=== PATIENT | female | born 1970 | race Caucasian/White ===

== ENCOUNTER 2020-06-16 05:10 | Inpatient (IN) ==
[2020-06-16] MEDS ORDERED: FUROSEMIDE 40 MG/4 ML VIAL IV STA (06:26)
[2020-06-16 06:46] LABS: ABG Base Excess 8.6 MMOL/L (-2.5-2.5); ABG HCO3 32.3 MMOL/L (20-26); ABG Oxygen Saturation 97.7 % (95-100); ABG PCO2 59.3 MM HG (35-48); ABG PH 7.386 (7.35-7.45)
[2020-06-16 07:28] LABS: Albumin 2.9 G/DL (3.4-5.0); Bilirubin,Total 0.9 MG/DL (0.2-1.0); Calcium 8.7 MG/DL (8.5-10.1); Total Protein 6.9 G/DL (6.4-8.3)
[2020-06-16 07:45] LABS: Bilirubin,Urine Negative (Negative); Blood, Urine Moderate mg/dL (Negative); Glucose,Urine (UA) Negative (Negative); Ketones,Urine Negative (Negative); Nitrite,Urine Negative (Negative); Protein,Urine 100 MG/DL; Urine Appearance Slightly Hazy (Clear); Urine Color Yellow (Yellow); Urine Specific Gravity 1.017 (1.001-1.035); Urine Urobilinogen < 2.0 EU/DL (0.2-1.0)
[2020-06-16 07:51] LABS: RBC,Urine TNTC /HPF (0-4); Squamous Epithelial Cell,Urine Moderate /HPF (0-10); WBC,Urine TNTC /HPF (0-6)
[2020-06-16 07:52] LABS: Amorphous Crystals,Urine Few /HPF (Few); Bacteria,Urine 3+ /HPF (Few)
[2020-06-16 08:06] LABS: Basophils # 0.1 10*3/uL (0.0-0.2); Basophils % 0.4 % (0.0-0.8); Eosinophils # 0.1 10*3/uL (0.0-0.87); Eosinophils % 0.7 % (0.00-10.9); Hematocrit 35.2 VOL% (35.7-47.0); Immature Granulocytes % 1.1 %; Immature Granulocytes Absolute 0.13 #; Lymphocytes # 1.2 10*3/uL (1.4-4.0); Lymphocytes % 9.6 % (21.3-54.2); Mean Corpuscular HGB Conc 29.3 GM/DL (32-36); Mean Platelet Volume 11.9 FL (9.6-12.0); Monocytes % 5.6 % (1.7-12.7); NRBC # 0.02 10*3/uL; Neutrophils % 82.6 % (38.7-73.9); Platelet Count 210 T/CUMM (130-400); Red Blood Count 4.19 MC/CUMM (3.8-5.5); Red Cell Distribution Width 17.6 % (9.3-17.3); White Blood Count 12.3 T/CUMM (4-12)
[2020-06-16 08:08] LABS: Hemoglobin 10.3 GM/DL (12.0-16.0)
[2020-06-16 08:23] LABS: Hypochromasia 1+; Microcytosis 1+; Platelet Estimate Adequate
[2020-06-16] MEDS ORDERED: DEXTROSE 50% 25 GM/50 ML VIAL IV PRN (10:45)
[2020-06-16] MEDS ORDERED: hydrALAZINE 20 MG/1 ML VIAL IV PRN (10:45)
[2020-06-16] MEDS ORDERED: GLUCAGON 1 MG VIAL IM PRN (10:45)
[2020-06-16] MEDS ORDERED: guaiFENesin/DM ER 600-30 MG TABLET PO PRN (10:45)
[2020-06-16] MEDS ORDERED: MAGNESIUM SULF RIDER 4 GM in PREMIX 1 EACH IV PRN (10:51)
[2020-06-16] MEDS ORDERED: MAGNESIUM SULF RIDER 2 GM in PREMIX 1 EACH IV PRN (10:51)
[2020-06-16] MEDS ORDERED: SODIUM CHLORIDE 0.9% 100 ML IV ONE (11:08)
[2020-06-16] MEDS: cefTRIAXone 1,000 MG in SYRINGE 1 EACH IV SCH (11:13)
[2020-06-16 11:17] LABS: Risk Ratio 2.04; Thyroid Stimulating Hormone 0.949 uIU/ml (0.358-3.74); VLDL CHOLESTEROL 15.2 MG/DL
[2020-06-16] MEDS: ALBUTEROL 2.5 MG/3 ML NEB RESP TX SCH ×2 (12:35→19:35)
[2020-06-16] MEDS ORDERED: hydrALAZINE 25 MG TABLET PO SCH (15:00)
[2020-06-16] MEDS ORDERED: GABAPENTIN 300 MG CAPSULE ONE (15:03)
[2020-06-16] MEDS: GABAPENTIN 300 MG CAPSULE PO SCH ×2 (15:21→21:01)
[2020-06-16] MEDS ORDERED: FUROSEMIDE 40 MG/4 ML VIAL IV SCH (16:00)
[2020-06-16] MEDS: FUROSEMIDE 40 MG/4 ML VIAL IV SCH (16:03)
[2020-06-16] MEDS ORDERED: ALPRAZolam 0.5 MG TABLET PO PRN (16:55)
[2020-06-16] MEDS ORDERED: AMITRIPTYLINE 50 MG TABLET PO SCH (18:00)
[2020-06-16] MEDS ORDERED: GABAPENTIN 300 MG CAPSULE PO SCH (21:00)
[2020-06-17] MEDS: ALBUTEROL 2.5 MG/3 ML NEB RESP TX SCH ×4 (00:09→19:14)
[2020-06-17 06:06] LABS: Calcium 8.9 MG/DL (8.5-10.1)
[2020-06-17 06:13] LABS: Potassium 3.7 MMOL/L (3.5-5.1)
[2020-06-17 06:22] LABS: Basophils # 0.1 10*3/uL (0.0-0.2); Basophils % 0.6 % (0.0-0.8); Eosinophils # 0.2 10*3/uL (0.0-0.87); Eosinophils % 2.4 % (0.00-10.9); Hematocrit 37.6 VOL% (35.7-47.0); Immature Granulocytes % 0.6 %; Immature Granulocytes Absolute 0.06 #; Lymphocytes # 1.7 10*3/uL (1.4-4.0); Lymphocytes % 16.9 % (21.3-54.2); Mean Corpuscular HGB Conc 29.5 GM/DL (32-36); Mean Corpuscular Volume 82.8 FL (87-102); Mean Platelet Volume 11.3 FL (9.6-12.0); Neutrophils % 72.5 % (38.7-73.9); Platelet Count 207 T/CUMM (130-400); Red Blood Count 4.54 MC/CUMM (3.8-5.5); Red Cell Distribution Width 17.6 % (9.3-17.3); White Blood Count 9.9 T/CUMM (4-12)
[2020-06-17 06:24] LABS: Hemoglobin 11.1 GM/DL (12.0-16.0)
[2020-06-17 07:57] LABS: ABG Base Excess 15.4 MMOL/L (-2.5-2.5); ABG HCO3 38.8 MMOL/L (20-26); ABG Oxygen Saturation 70.4 % (95-100); ABG PH 7.383 (7.35-7.45); ABG PO2 41.2 MM HG (80-95); ABG TCO2 40.1 MMOL/L (23-27)
[2020-06-17 07:58] LABS: ABG PCO2 74.1 MM HG (35-48)
[2020-06-17] MEDS ORDERED: NAPROXEN 500 MG TABLET PO ONE (09:23)
[2020-06-17] MEDS: FLUoxetine 20 MG CAPSULE PO SCH (10:12)
[2020-06-17] MEDS: rOPINIRole 0.25 MG TABLET PO SCH (10:13)
[2020-06-17] MEDS: GABAPENTIN 300 MG CAPSULE PO SCH ×3 (10:16→21:54)
[2020-06-17] MEDS: PANTOPRAZOLE 40 MG TABLET PO SCH (10:17)
[2020-06-17] MEDS: LOSARTAN/HCTZ 50-12.5 MG TABLET PO SCH (10:17)
[2020-06-17] MEDS: FUROSEMIDE 40 MG/4 ML VIAL IV SCH ×2 (10:17→17:27)
[2020-06-17] MEDS: ASPIRIN CHEW 81 MG TABLET PO SCH (10:17)
[2020-06-17] MEDS: cefTRIAXone 1,000 MG in SYRINGE 1 EACH IV SCH (12:01)
[2020-06-17] MEDS: ONDANSETRON 4 MG/2 ML VIAL IV PRN (12:23)
[2020-06-17 14:39] LABS: ABG Base Excess 12.4 MMOL/L (-2.5-2.5); ABG HCO3 36.1 MMOL/L (20-26); ABG Oxygen Saturation 93.1 % (95-100); ABG PH 7.305 (7.35-7.45); ABG TCO2 38.7 MMOL/L (23-27)
[2020-06-17 14:43] LABS: ABG PCO2 85.8 MM HG (35-48)
[2020-06-17] MEDS: methylPREDNISolone SOD SUC 40 MG/1 ML VIAL IV SCH (15:44)
[2020-06-17] MEDS ORDERED: AMITRIPTYLINE 25 MG TABLET PO SCH (17:00)
[2020-06-17 18:12] LABS: ABG Base Excess 12.7 MMOL/L (-2.5-2.5); ABG HCO3 36.4 MMOL/L (20-26); ABG PH 7.293 (7.35-7.45); ABG PO2 68.2 MM HG (80-95); ABG TCO2 39.6 MMOL/L (23-27)
[2020-06-17 18:15] LABS: ABG PCO2 89.9 MM HG (35-48)
[2020-06-17 21:07] LABS: Bilirubin,Urine Negative (Negative); Blood, Urine Moderate mg/dL (Negative); Glucose,Urine (UA) Negative (Negative); Ketones,Urine Negative (Negative); Mucus,Urine Occasional /LPF (Occasional); Nitrite,Urine Negative (Negative); Protein,Urine 100 MG/DL; RBC,Urine 46 /HPF (0-4); Squamous Epithelial Cell,Urine Occasional /HPF (0-10); Urine Appearance CLOUDY (Clear); Urine Color Amber (Yellow); Urine Urobilinogen < 2.0 EU/DL (0.2-1.0); WBC,Urine 235 /HPF (0-6)
[2020-06-17 21:08] LABS: ABG Base Excess 13.2 MMOL/L (-2.5-2.5); ABG HCO3 44.7 MMOL/L (20-26); ABG Oxygen Saturation 97.4 % (95-100); ABG PH 7.226 (7.35-7.45); ABG PO2 118.4 MM HG (80-95); ABG TCO2 48.1 MMOL/L (23-27)
[2020-06-17 21:11] LABS: ABG PCO2 110.3 MM HG (35-48)
[2020-06-18] MEDS: methylPREDNISolone SOD SUC 40 MG/1 ML VIAL IV SCH ×4 (00:28→23:50)
[2020-06-18 00:56] LABS: ABG Base Excess 11.6 MMOL/L (-2.5-2.5); ABG HCO3 35.4 MMOL/L (20-26); ABG Oxygen Saturation 98.6 % (95-100); ABG PH 7.213 (7.35-7.45); ABG TCO2 40.9 MMOL/L (23-27)
[2020-06-18] MEDS: ALBUTEROL 2.5 MG/3 ML NEB RESP TX SCH ×5 (00:58→20:02)
[2020-06-18 04:13] LABS: ABG Base Excess 12.4 MMOL/L (-2.5-2.5); ABG HCO3 42.9 MMOL/L (20-26); ABG Oxygen Saturation 95.8 % (95-100); ABG PH 7.259 (7.35-7.45); ABG PO2 89.4 MM HG (80-95); ABG TCO2 45.9 MMOL/L (23-27); Allen Test Positive; Pt O2 Delivery Device BIPAP
[2020-06-18 04:39] LABS: Calcium 8.7 MG/DL (8.5-10.1); Potassium 4.6 MMOL/L (3.5-5.1)
[2020-06-18 04:58] LABS: Basophils % 0.2 % (0.0-0.8); Hematocrit 41.2 VOL% (35.7-47.0); Hemoglobin 11.3 GM/DL (12.0-16.0); Immature Granulocytes % 0.5 %; Immature Granulocytes Absolute 0.06 #; Lymphocytes # 0.6 10*3/uL (1.4-4.0); Lymphocytes % 4.9 % (21.3-54.2); Mean Corpuscular HGB Conc 27.4 GM/DL (32-36); Neutrophils % 92.4 % (38.7-73.9); Platelet Count 241 T/CUMM (130-400); Red Blood Count 4.68 MC/CUMM (3.8-5.5); Red Cell Distribution Width 17.4 % (9.3-17.3); White Blood Count 11.4 T/CUMM (4-12)
[2020-06-18 05:08] LABS: Band Neutrophils 1 % (0-10); Hypochromasia 2+; Lymphocytes 6 % (20-55); Microcytosis 1+; Ovalocytes Slight; Segmented Neutrophils 89 % (50-85); Total Cells Counted 100
[2020-06-18 05:09] LABS: Anisocytosis 1+; Stomatocytes Slight
[2020-06-18] MEDS: ASPIRIN CHEW 81 MG TABLET PO SCH (09:04)
[2020-06-18] MEDS: LOSARTAN/HCTZ 50-12.5 MG TABLET PO SCH (09:04)
[2020-06-18] MEDS: THEOPHYLLINE ER (24 HR) 400 MG CAPSULE PO SCH (09:05)
[2020-06-18] MEDS: rOPINIRole 0.25 MG TABLET PO SCH (09:05)
[2020-06-18] MEDS: PANTOPRAZOLE 40 MG TABLET PO SCH (09:05)
[2020-06-18] MEDS: FLUoxetine 20 MG CAPSULE PO SCH (09:05)
[2020-06-18] MEDS: GABAPENTIN 300 MG CAPSULE PO SCH ×3 (09:05→20:30)
[2020-06-18] MEDS: FUROSEMIDE 40 MG/4 ML VIAL IV SCH ×2 (09:06→16:01)
[2020-06-18] MEDS: PHENAZOPYRIDINE 95 MG TABLET PO SCH ×2 (11:33→17:02)
[2020-06-18] MEDS: AMITRIPTYLINE 50 MG TABLET PO SCH (17:02)
[2020-06-19 04:02] LABS: Basophils % 0.2 % (0.0-0.8); Hematocrit 37.2 VOL% (35.7-47.0); Hemoglobin 10.6 GM/DL (12.0-16.0); Immature Granulocytes % 0.6 %; Immature Granulocytes Absolute 0.07 #; Lymphocytes # 1.1 10*3/uL (1.4-4.0); Lymphocytes % 8.9 % (21.3-54.2); Mean Corpuscular HGB Conc 28.5 GM/DL (32-36); Mean Corpuscular Volume 84.7 FL (87-102); Mean Platelet Volume 11.6 FL (9.6-12.0); Monocytes % 5.6 % (1.7-12.7); Neutrophils % 84.7 % (38.7-73.9); Platelet Count 275 T/CUMM (130-400); Red Blood Count 4.39 MC/CUMM (3.8-5.5); Red Cell Distribution Width 17.2 % (9.3-17.3); White Blood Count 11.9 T/CUMM (4-12)
[2020-06-19 04:12] LABS: Anisocytosis 1+; Hypochromasia 2+; Microcytosis 1+; Ovalocytes Slight; Platelet Estimate Normal
[2020-06-19 04:31] LABS: Osmolality,Calculated 282.2 MOS/KG (273-304); Potassium 3.7 MMOL/L (3.5-5.1)
[2020-06-19] MEDS: ALBUTEROL 2.5 MG/3 ML NEB RESP TX SCH ×3 (08:07→20:49)
[2020-06-19] MEDS: FLUoxetine 20 MG CAPSULE PO SCH (08:39)
[2020-06-19] MEDS: LOSARTAN/HCTZ 50-12.5 MG TABLET PO SCH (08:40)
[2020-06-19] MEDS: GABAPENTIN 300 MG CAPSULE PO SCH ×3 (08:40→20:35)
[2020-06-19] MEDS: THEOPHYLLINE ER (24 HR) 400 MG CAPSULE PO SCH (08:40)
[2020-06-19] MEDS: ASPIRIN CHEW 81 MG TABLET PO SCH (08:40)
[2020-06-19] MEDS: PHENAZOPYRIDINE 95 MG TABLET PO SCH ×2 (08:40→16:41)
[2020-06-19] MEDS: rOPINIRole 0.25 MG TABLET PO SCH (08:40)
[2020-06-19] MEDS: PANTOPRAZOLE 40 MG TABLET PO SCH (08:40)
[2020-06-19] MEDS: FUROSEMIDE 40 MG/4 ML VIAL IV SCH (08:41)
[2020-06-19] MEDS: methylPREDNISolone SOD SUC 40 MG/1 ML VIAL IV SCH (08:41)
[2020-06-19] MEDS ORDERED: FUROSEMIDE 40 MG/4 ML VIAL IV SCH (09:00)
[2020-06-19] MEDS ORDERED: cefTRIAXone 1,000 MG in SYRINGE 1 EACH IV ONE (09:00)
[2020-06-19 11:11] LABS: Allen Test Positive
[2020-06-19 11:14] LABS: ABG Base Excess 11.5 MMOL/L (-2.5-2.5); ABG HCO3 39.1 MMOL/L (20-26); ABG PCO2 63.6 MM HG (35-48); ABG PH 7.407 (7.35-7.45); ABG PO2 63.1 MM HG (80-95); ABG TCO2 41.1 MMOL/L (23-27)
[2020-06-19 11:16] LABS: ABG Oxygen Saturation 91.6 % (95-100)
[2020-06-19] MEDS: predniSONE 20 MG TABLET PO SCH (13:14)
[2020-06-19] MEDS: AMITRIPTYLINE 50 MG TABLET PO SCH (16:41)
[2020-06-19] MEDS: DOCUSATE SODIUM 100 MG CAPSULE PO SCH ×2 (17:36→20:35)
[2020-06-19] MEDS: POLYETHYLENE GLYCOL POWDER 17 GM PACK PO SCH (17:36)
[2020-06-19] MEDS: ONDANSETRON 4 MG/2 ML VIAL IV PRN (17:39)
[2020-06-20] MEDS: ALBUTEROL 2.5 MG/3 ML NEB RESP TX SCH ×2 (00:55→08:00)
[2020-06-20 09:08] LABS: Calcium 8.9 MG/DL (8.5-10.1); Potassium 3.6 MMOL/L (3.5-5.1)
[2020-06-20 09:21] LABS: Osmolality,Calculated 281.8 MOS/KG (273-304)
[2020-06-20] MEDS: THEOPHYLLINE ER (24 HR) 400 MG CAPSULE PO SCH (09:56)
[2020-06-20] MEDS: predniSONE 20 MG TABLET PO SCH (09:56)
[2020-06-20] MEDS: GABAPENTIN 300 MG CAPSULE PO SCH (09:57)
[2020-06-20] MEDS: PHENAZOPYRIDINE 95 MG TABLET PO SCH (09:57)
[2020-06-20] MEDS: LOSARTAN/HCTZ 50-12.5 MG TABLET PO SCH (09:58)
[2020-06-20] MEDS: ASPIRIN CHEW 81 MG TABLET PO SCH (09:58)
[2020-06-20] MEDS: PANTOPRAZOLE 40 MG TABLET PO SCH (09:58)
[2020-06-20] MEDS: FLUoxetine 20 MG CAPSULE PO SCH (09:58)
[2020-06-20] MEDS: DOCUSATE SODIUM 100 MG CAPSULE PO SCH (09:59)
[2020-06-20] MEDS: rOPINIRole 0.25 MG TABLET PO SCH (09:59)
[2020-06-20] MEDS: POLYETHYLENE GLYCOL POWDER 17 GM PACK PO SCH (09:59)
[2020-06-20 12:01] VITALS: BP 132/82
[2020-06-20] MEDS ORDERED: POLYETHYLENE GLYCOL POWDER 17 GM PACK PO SCH (16:50)
== END 2020-06-20 12:25 | disposition home or self-care (01) | DRG 291 ==
LOC: N.ED 05:10 → N.EDINP 10:45 → SUATTDRO 10:45 → N.EDINP 19:58 → N.TELEN 20:29 → N.ICU 06-17 20:18 → N.3E 06-19 15:49
PROVIDERS: ADMIT Internal Medicine; ATTEND Internal Medicine

== ENCOUNTER 2020-07-21 20:42 | Inpatient (IN) ==
[2020-07-21] MEDS ORDERED: KETOROLAC 30 MG/1 ML VIAL IV STA (22:10)
[2020-07-21] MEDS ORDERED: ONDANSETRON 4 MG/2 ML VIAL IV STA (22:10)
[2020-07-21] MEDS ORDERED: SODIUM CHLORIDE 0.9% 1,000 ML IV STA (22:10)
[2020-07-21] MEDS ORDERED: HYDROmorphone 2 MG/1 ML VIAL IV STA (22:10)
[2020-07-21 23:03] LABS: Basophils # 0.1 10*3/uL (0.0-0.2); Basophils % 0.5 % (0.0-0.8); Eosinophils # 0.2 10*3/uL (0.0-0.87); Eosinophils % 1.8 % (0.00-10.9); Hematocrit 38.6 VOL% (35.7-47.0); Immature Granulocytes % 0.4 %; Immature Granulocytes Absolute 0.05 #; Lymphocytes # 3.1 10*3/uL (1.4-4.0); Lymphocytes % 25.1 % (21.3-54.2); Mean Corpuscular HGB Conc 28.5 GM/DL (32-36); Mean Corpuscular Volume 83.5 FL (87-102); Mean Platelet Volume 11.5 FL (9.6-12.0); Monocytes % 7.3 % (1.7-12.7); Neutrophils % 64.9 % (38.7-73.9); Platelet Count 265 T/CUMM (130-400); Red Blood Count 4.62 MC/CUMM (3.8-5.5); Red Cell Distribution Width 20.2 % (9.3-17.3); White Blood Count 12.3 T/CUMM (4-12)
[2020-07-21 23:06] LABS: Alanine Aminotransferase 17 U/L (13-56); Albumin 3.2 G/DL (3.4-5.0); Alkaline Phosphatase 48 U/L (45-117); Amylase 66 U/L (25-115); Aspartate Amino Transferase 14 U/L (0-37); Bilirubin,Total < 0.39 MG/DL (0.2-1.0); Blood Urea Nitrogen 26 MG/DL (7-18); Calcium 8.6 MG/DL (8.5-10.1); Carbon Dioxide 29 MMOL/L (21-32); Estimated Glom Filtration Rate 81 ML/MIN; Glucose 99 MG/DL (74-106); Osmolality,Calculated 283.4 MOS/KG (273-304); Potassium 4.5 MMOL/L (3.5-5.1); Sodium 140 MMOL/L (136-145); Total Protein 6.7 G/DL (6.4-8.3)
[2020-07-21 23:17] LABS: Bilirubin,Urine Negative (Negative); Blood, Urine Large mg/dL (Negative); Glucose,Urine (UA) Negative (Negative); Hyaline Casts,Urine 42 /LPF (0-3); Ketones,Urine Negative (Negative); Mucus,Urine Few /LPF (Occasional); Nitrite,Urine Positive (Negative); Protein,Urine 100 MG/DL; RBC,Urine 1226 /HPF (0-4); Squamous Epithelial Cell,Urine Many /HPF (0-10); Urine Appearance CLOUDY (Clear); Urine Color Amber (Yellow); Urine Specific Gravity 1.029 (1.001-1.035); WBC,Urine 435 /HPF (0-6)
[2020-07-22] MEDS ORDERED: MEROPENEM 500 MG in SODIUM CHLORIDE 0.9% 100 ML IV ONE
[2020-07-22] MEDS ORDERED: PHENAZOPYRIDINE 95 MG TABLET PO STA (01:04)
[2020-07-22] MEDS ORDERED: HYDROmorphone 2 MG/1 ML VIAL IV STA (01:44)
[2020-07-22] MEDS ORDERED: DEXTROSE 50% 25 GM/50 ML VIAL IV PRN (02:05)
[2020-07-22] MEDS ORDERED: GLUCAGON 1 MG VIAL IM PRN (02:05)
[2020-07-22] MEDS ORDERED: NICOTINE 21 MG/24 HR PATCH TRANSDERM PRN (02:05)
[2020-07-22] MEDS ORDERED: hydrALAZINE 20 MG/1 ML VIAL IV PRN (02:05)
[2020-07-22] MEDS: SODIUM CHLORIDE 0.9% 1,000 ML IV SCH ×2 (03:23→10:34)
[2020-07-22] MEDS: MORPHINE 4 MG/1 ML VIAL IV PRN ×4 (06:17→21:01)
[2020-07-22] MEDS: ONDANSETRON 4 MG/2 ML VIAL IV PRN ×2 (06:20→11:01)
[2020-07-22] MEDS: MEROPENEM 500 MG in SODIUM CHLORIDE 0.9% 100 ML IV SCH ×4 (06:22→23:48)
[2020-07-22] MEDS: OXYBUTYNIN 5 MG TABLET PO PRN (17:56)
[2020-07-22] MEDS ORDERED: FLUCONAZOLE 150 MG TABLET PO ONE (19:30)
[2020-07-23] MEDS: MORPHINE 4 MG/1 ML VIAL IV PRN ×4 (01:27→21:51)
[2020-07-23] MEDS: OXYBUTYNIN 5 MG TABLET PO PRN ×3 (01:28→21:51)
[2020-07-23] MEDS: SODIUM CHLORIDE 0.9% 1,000 ML IV SCH (01:30)
[2020-07-23] MEDS: MEROPENEM 500 MG in SODIUM CHLORIDE 0.9% 100 ML IV SCH (05:10)
[2020-07-23 06:41] LABS: Alanine Aminotransferase 18 U/L (13-56); Albumin 2.8 G/DL (3.4-5.0); Alkaline Phosphatase 44 U/L (45-117); Aspartate Amino Transferase 10 U/L (0-37); Bilirubin,Total < 0.39 MG/DL (0.2-1.0); Blood Urea Nitrogen 19 MG/DL (7-18); Calcium 8.6 MG/DL (8.5-10.1); Carbon Dioxide 30 MMOL/L (21-32); Estimated Glom Filtration Rate 114 ML/MIN; Glucose 85 MG/DL (74-106); Osmolality,Calculated 283.1 MOS/KG (273-304); Potassium 4.5 MMOL/L (3.5-5.1); Sodium 142 MMOL/L (136-145); Total Protein 6.3 G/DL (6.4-8.3)
[2020-07-23 06:56] LABS: Basophils # 0.1 10*3/uL (0.0-0.2); Basophils % 0.5 % (0.0-0.8); Eosinophils # 0.2 10*3/uL (0.0-0.87); Eosinophils % 1.7 % (0.00-10.9); Hematocrit 39.9 VOL% (35.7-47.0); Hemoglobin 11.1 GM/DL (12.0-16.0); Immature Granulocytes % 0.5 %; Immature Granulocytes Absolute 0.06 #; Lymphocytes # 2.5 10*3/uL (1.4-4.0); Lymphocytes % 23.1 % (21.3-54.2); Mean Corpuscular HGB Conc 27.8 GM/DL (32-36); Mean Platelet Volume 11.7 FL (9.6-12.0); Monocytes % 7.7 % (1.7-12.7); Neutrophils % 66.5 % (38.7-73.9); Platelet Count 230 T/CUMM (130-400); Red Blood Count 4.64 MC/CUMM (3.8-5.5)
[2020-07-23 06:59] LABS: Hypochromasia 1+; Microcytosis 1+
[2020-07-23 07:00] LABS: Ovalocytes Slight; Platelet Estimate Normal
[2020-07-23] MEDS: ONDANSETRON 4 MG/2 ML VIAL IV PRN ×2 (09:40→14:19)
[2020-07-23] MEDS: oxyCODONE/ACETAMINOPHEN 5-325 MG TABLET PO PRN ×3 (11:35→20:46)
[2020-07-23] MEDS: cefTRIAXone 1,000 MG in SYRINGE 1 EACH IV SCH (11:35)
[2020-07-23] MEDS: PHENAZOPYRIDINE 95 MG TABLET PO SCH ×2 (11:36→18:45)
[2020-07-23] MEDS ORDERED: MORPHINE 4 MG/1 ML VIAL IV PRN (22:46)
[2020-07-23] MEDS ORDERED: PHENAZOPYRIDINE 95 MG TABLET PO ONE ×2 (22:57→23:00)
[2020-07-23] MEDS ORDERED: ACETAMINOPHEN 325 MG TABLET PO PRN (23:01)
[2020-07-23] MEDS: ACETAMINOPHEN 325 MG TABLET PO SCH (23:09)
[2020-07-23] MEDS: HYDROmorphone 2 MG/1 ML VIAL IV SCH (23:10)
[2020-07-24] MEDS: HYDROmorphone 2 MG/1 ML VIAL IV SCH ×3 (01:15→07:24)
[2020-07-24] MEDS: oxyCODONE/ACETAMINOPHEN 5-325 MG TABLET PO PRN ×4 (04:04→23:49)
[2020-07-24] MEDS: ACETAMINOPHEN 325 MG TABLET PO SCH ×4 (04:29→23:48)
[2020-07-24] MEDS ORDERED: cefTRIAXone 1,000 MG in SYRINGE 1 EACH IV ONE (06:00)
[2020-07-24] MEDS: diphenhydrAMINE CAP 25 MG CAPSULE PO PRN ×2 (07:26→19:44)
[2020-07-24] MEDS: OXYBUTYNIN 5 MG TABLET PO PRN (12:11)
[2020-07-24] MEDS: HYDROmorphone 2 MG/1 ML VIAL IV PRN ×5 (12:12→19:33)
[2020-07-24] MEDS ORDERED: MIDAZOLAM 2 MG/2 ML VIAL ONE (12:19)
[2020-07-24] MEDS ORDERED: LIDOCAINE 2% 5 ML VIAL ONE (12:20)
[2020-07-24] MEDS ORDERED: fentaNYL 100 MCG/2 ML VIAL ONE (12:20)
[2020-07-24] MEDS ORDERED: ROCURONIUM 50 MG/5 ML VIAL IV ONE ×2 (12:20→16:22)
[2020-07-24] MEDS ORDERED: propofoL 200 MG/20 ML VIAL IV ONE (12:20)
[2020-07-24] MEDS ORDERED: SUCCINYLCHOLINE 200 MG/10 ML VIAL ONE (12:20)
[2020-07-24] MEDS: cefTRIAXone 1,000 MG in SYRINGE 1 EACH IV SCH (13:02)
[2020-07-24] MEDS: SODIUM CHLORIDE 0.9% 1,000 ML IV SCH ×3 (15:06→19:30)
[2020-07-24] MEDS ORDERED: SUGAMMADEX 200 MG/2 ML VIAL IV ONE (16:21)
[2020-07-24] MEDS ORDERED: ONDANSETRON 4 MG/2 ML VIAL ONE (16:22)
[2020-07-24] MEDS ORDERED: SEVOFLURANE 1 UNIT/15 MINUTE INH ONE (16:22)
[2020-07-24] MEDS ORDERED: BELLADONNA/OPIUM 30 MG SUPP RECTAL ONE (16:46)
[2020-07-24] MEDS ORDERED: PROMETHAZINE INJ 25 MG in SODIUM CHLORIDE 0.9% 50 ML IV PRN (17:01)
[2020-07-24] MEDS ORDERED: PROMETHAZINE 25 MG/1 ML VIAL ONE (17:02)
[2020-07-24] MEDS: ONDANSETRON 4 MG/2 ML VIAL IV PRN (19:30)
[2020-07-25] MEDS: SODIUM CHLORIDE 0.9% 1,000 ML IV SCH ×3 (03:39→19:45)
[2020-07-25] MEDS: HYDROmorphone 2 MG/1 ML VIAL IV PRN ×5 (05:02→18:11)
[2020-07-25] MEDS: ACETAMINOPHEN 325 MG TABLET PO SCH ×3 (05:05→18:11)
[2020-07-25] MEDS: oxyCODONE/ACETAMINOPHEN 5-325 MG TABLET PO PRN ×4 (06:17→23:24)
[2020-07-25 07:54] LABS: Calcium 8.7 MG/DL (8.5-10.1); Osmolality,Calculated 277.7 MOS/KG (273-304); Potassium 4.4 MMOL/L (3.5-5.1)
[2020-07-25 07:57] LABS: Basophils % 0.4 % (0.0-0.8); Eosinophils # 0.1 10*3/uL (0.0-0.87); Eosinophils % 1.4 % (0.00-10.9); Hematocrit 38.8 VOL% (35.7-47.0); Immature Granulocytes % 0.3 %; Immature Granulocytes Absolute 0.03 #; Lymphocytes # 1.7 10*3/uL (1.4-4.0); Lymphocytes % 17.2 % (21.3-54.2); Mean Corpuscular HGB Conc 28.4 GM/DL (32-36); Mean Corpuscular Volume 85.5 FL (87-102); Mean Platelet Volume 11.6 FL (9.6-12.0); Monocytes % 6.3 % (1.7-12.7); Neutrophils % 74.4 % (38.7-73.9); Platelet Count 233 T/CUMM (130-400); Red Blood Count 4.54 MC/CUMM (3.8-5.5); Red Cell Distribution Width 19.4 % (9.3-17.3); White Blood Count 9.9 T/CUMM (4-12)
[2020-07-25] MEDS: ONDANSETRON 4 MG/2 ML VIAL IV PRN (08:32)
[2020-07-25] MEDS: OXYBUTYNIN 5 MG TABLET PO PRN ×2 (08:38→16:08)
[2020-07-25] MEDS: BELLADONNA/OPIUM 30 MG SUPP RECTAL PRN (08:38)
[2020-07-25] MEDS: FLUoxetine 20 MG CAPSULE PO SCH (09:30)
[2020-07-25] MEDS: ALPRAZolam 0.5 MG TABLET PO SCH ×2 (09:30→21:38)
[2020-07-25 10:10] LABS: Hypochromasia 1+; Microcytosis 1+
[2020-07-25 10:11] LABS: Ovalocytes Slight; Platelet Estimate Normal
[2020-07-25] MEDS: cefTRIAXone 1,000 MG in SYRINGE 1 EACH IV SCH (14:07)
[2020-07-25] MEDS: diphenhydrAMINE CAP 25 MG CAPSULE PO PRN ×2 (16:08→23:24)
[2020-07-25] MEDS: MORPHINE ER 30 MG TABLET PO SCH (19:55)
[2020-07-26] MEDS: SODIUM CHLORIDE 0.9% 1,000 ML IV SCH ×2 (02:38→12:50)
[2020-07-26] MEDS: ACETAMINOPHEN 325 MG TABLET PO SCH ×3 (02:40→16:02)
[2020-07-26] MEDS: HYDROmorphone 2 MG/1 ML VIAL IV PRN ×2 (04:35→10:56)
[2020-07-26] MEDS: diphenhydrAMINE CAP 25 MG CAPSULE PO PRN (05:43)
[2020-07-26] MEDS: MORPHINE ER 30 MG TABLET PO SCH (05:43)
[2020-07-26] MEDS: BELLADONNA/OPIUM 30 MG SUPP RECTAL PRN (05:44)
[2020-07-26] MEDS: HYDROmorphone 2 MG/1 ML VIAL IV SCH (07:26)
[2020-07-26] MEDS: LACTULOSE 20 GM/30 ML UDCUP PO PRN ×2 (08:46→15:44)
[2020-07-26] MEDS: ALPRAZolam 0.5 MG TABLET PO SCH (08:46)
[2020-07-26] MEDS: FLUoxetine 20 MG CAPSULE PO SCH (08:46)
[2020-07-26] MEDS: oxyCODONE/ACETAMINOPHEN 5-325 MG TABLET PO PRN ×2 (09:50→15:44)
[2020-07-26] MEDS: ONDANSETRON 4 MG/2 ML VIAL IV PRN (10:55)
[2020-07-26 12:32] VITALS: BP 146/69
[2020-07-26] MEDS: cefTRIAXone 1,000 MG in SYRINGE 1 EACH IV SCH (16:02)
== END 2020-07-26 16:07 | disposition home or self-care (01) | DRG 669 ==
LOC: N.ED 20:42 → N.EDINP 20:42 → N.3E 07-22 14:52 → SUATTDRO 07-24 07:31
PROVIDERS: ADMIT Internal Medicine; ATTEND Internal Medicine

== ENCOUNTER 2020-07-30 09:21 | Inpatient (IN) ==
[2020-07-30] MEDS ORDERED: SODIUM CHLORIDE 0.9% IV ONE (09:44)
[2020-07-30] MEDS ORDERED: SODIUM CHLORIDE 0.9% 1,000 ML IV STA (09:44)
[2020-07-30 10:11] LABS: ABG Base Excess -0.3 MMOL/L (-2.5-2.5); ABG Oxygen Saturation 90.1 % (95-100); ABG PO2 81.6 MM HG (80-95); ABG TCO2 30.1 MMOL/L (23-27)
[2020-07-30 10:14] LABS: ABG PCO2 94.8 MM HG (35-48); ABG PH 7.138 (7.35-7.45)
[2020-07-30] MEDS ORDERED: ETOMIDATE 20 MG/10 ML VIAL IV ONE (10:25)
[2020-07-30] MEDS ORDERED: ROCURONIUM 100 MG/10 ML VIAL IV ONE ×2 (10:27→10:28)
[2020-07-30 10:38] LABS: Barbiturates Screen,Urine Negative (Negative); Benzodiazepines Screen,Urine Positive (Negative); Cannabinoid Screen,Urine Negative (Negative); Opiate Screen,Urine Positive (Negative); Phencyclidine Screen,Urine Negative (Negative)
[2020-07-30] MEDS ORDERED: ONDANSETRON 4 MG/2 ML VIAL IV PRN (10:55)
[2020-07-30] MEDS ORDERED: LACTULOSE 20 GM/30 ML UDCUP PO PRN (10:55)
[2020-07-30] MEDS ORDERED: ALBUTEROL 2.5 MG/3 ML NEB RESP TX PRN (10:55)
[2020-07-30 10:58] LABS: Bilirubin,Urine Negative (Negative); Blood, Urine Large mg/dL (Negative); Glucose,Urine (UA) Negative (Negative); Hyaline Casts,Urine 95 /LPF (0-3); Ketones,Urine Negative (Negative); Mucus,Urine Many /LPF (Occasional); Nitrite,Urine Negative (Negative); Protein,Urine 100 MG/DL; RBC,Urine 587 /HPF (0-4); Squamous Epithelial Cell,Urine Few /HPF (0-10); Urine Appearance CLOUDY (Clear); Urine Specific Gravity 1.014 (1.001-1.035); Urine Urobilinogen < 2.0 EU/DL (0.2-1.0); WBC,Urine 1909 /HPF (0-6)
[2020-07-30 10:59] LABS: Urine Color Yellow (Yellow)
[2020-07-30] MEDS ORDERED: cefTRIAXone 1,000 MG in SYRINGE 1 EACH IV SCH (11:30)
[2020-07-30 12:09] LABS: Alanine Aminotransferase 170 U/L (13-56); Albumin 2.8 G/DL (3.4-5.0); Alkaline Phosphatase 61 U/L (45-117); Aspartate Amino Transferase 169 U/L (0-37); Blood Urea Nitrogen 32 MG/DL (7-18); Calcium 9.3 MG/DL (8.5-10.1); Carbon Dioxide 20 MMOL/L (21-32); Estimated Glom Filtration Rate 42 ML/MIN; Glucose 111 MG/DL (74-106); Osmolality,Calculated 260.4 MOS/KG (273-304); Potassium 5.9 MMOL/L (3.5-5.1); Sodium 126 MMOL/L (136-145); Total Protein 7.4 G/DL (5.0-7.5)
[2020-07-30 12:54] LABS: Basophils % 0.2 % (0.0-0.8); Hematocrit 36.7 VOL% (35.7-47.0); Hemoglobin 10.5 GM/DL (12.0-16.0); Lymphocytes % 9.8 % (21.3-54.2); Mean Corpuscular HGB Conc 28.6 GM/DL (32-36); Mean Platelet Volume 11.5 FL (9.6-12.0); Monocytes % 4.9 % (1.7-12.7); NRBC # 0.03 10*3/uL; Neutrophils % 84.1 % (38.7-73.9); Platelet Count 223 T/CUMM (130-400); Red Blood Count 4.37 MC/CUMM (3.8-5.5); Red Cell Distribution Width 18.8 % (9.3-17.3); White Blood Count 9.9 T/CUMM (4-12)
[2020-07-30 13:03] LABS: PT Patient Result 11.2 SECS (9.8-11.9); Partial Thromboplastin Time 26.4 SECS (23.9-33.8)
[2020-07-30 13:11] LABS: Lactic Acid 1.2 MMOL/L (0.4-2.0)
[2020-07-30] MEDS: SODIUM CHLORIDE 0.9% 1,000 ML IV SCH ×2 (13:45→21:50)
[2020-07-30 13:49] LABS: Platelet Estimate Normal
[2020-07-30 13:50] LABS: Hypochromasia 2+; Microcytosis 1+
[2020-07-30 13:54] LABS: ABG Base Excess 4.3 MMOL/L (-2.5-2.5); ABG Oxygen Saturation 25.7 % (95-100); ABG PCO2 62.8 MM HG (35-48); ABG PH 7.318 (7.35-7.45); ABG TCO2 29.8 MMOL/L (23-27)
[2020-07-30 13:57] LABS: ABG PO2 21.3 MM HG (80-95)
[2020-07-30] MEDS ORDERED: DEXTROSE 50% 25 GM/50 ML VIAL IV ONE (14:00)
[2020-07-30] MEDS ORDERED: INSULIN REGULAR 100 UNIT/ML IV ONE (14:00)
[2020-07-30] MEDS ORDERED: CALCIUM GLUCONATE 1,000 MG in SODIUM CHLORIDE 0.9% 100 ML IV ONE (14:00)
[2020-07-30] MEDS ORDERED: SODIUM BICARBONATE 50 MEQ/50 ML VIAL IV ONE (14:00)
[2020-07-30] MEDS: LACTULOSE 20 GM/30 ML UDCUP PER TUBE SCH ×2 (16:34→20:53)
[2020-07-30] MEDS ORDERED: INFLUENZA VIRUS VACCINE 0.5 ML SYRINGE IM ONE (17:22)
[2020-07-30 20:19] LABS: ABG Base Excess 7.2 MMOL/L (-2.5-2.5); ABG HCO3 31.1 MMOL/L (20-26); ABG Oxygen Saturation 98.2 % (95-100); ABG PCO2 36.2 MM HG (35-48); ABG PH 7.531 (7.35-7.45); ABG TCO2 27.1 MMOL/L (23-27)
[2020-07-31 03:34] LABS: ABG Base Excess 6.8 MMOL/L (-2.5-2.5); ABG HCO3 30.6 MMOL/L (20-26); ABG Oxygen Saturation 96.8 % (95-100); ABG PCO2 40.9 MM HG (35-48); ABG PH 7.486 (7.35-7.45); ABG PO2 99.9 MM HG (80-95); ABG TCO2 27.9 MMOL/L (23-27); Allen Test Positive; Pt O2 Delivery Device Ventilator
[2020-07-31] MEDS: MORPHINE 4 MG/1 ML VIAL IV PRN ×3 (03:58→16:50)
[2020-07-31] MEDS: SODIUM CHLORIDE 0.9% 1,000 ML IV SCH ×3 (04:29→11:30)
[2020-07-31 05:48] LABS: Basophils % 0.3 % (0.0-0.8); Eosinophils % 0.4 % (0.00-10.9); Hematocrit 36.4 VOL% (35.7-47.0); Immature Granulocytes % 0.9 %; Immature Granulocytes Absolute 0.09 #; Lymphocytes # 1.4 10*3/uL (1.4-4.0); Lymphocytes % 13.7 % (21.3-54.2); Mean Corpuscular HGB Conc 29.1 GM/DL (32-36); Mean Corpuscular Volume 82.9 FL (87-102); Mean Platelet Volume 11.9 FL (9.6-12.0); Monocytes % 9.2 % (1.7-12.7); Neutrophils % 75.5 % (38.7-73.9); Platelet Count 181 T/CUMM (130-400); Red Blood Count 4.39 MC/CUMM (3.8-5.5)
[2020-07-31 05:49] LABS: Albumin 2.8 G/DL (3.4-5.0); Bilirubin,Total 0.4 MG/DL (0.2-1.0); Calcium 8.8 MG/DL (8.5-10.1); Free T4 (Free Thyroxine) 0.94 NG/DL (0.76-1.46); Osmolality,Calculated 278.8 MOS/KG (273-304); Potassium 4.5 MMOL/L (3.5-5.1); Thyroid Stimulating Hormone 1.93 uIU/ml (0.358-3.74); Total Protein 6.2 G/DL (5.0-7.5)
[2020-07-31 05:50] LABS: Hemoglobin 10.6 GM/DL (12.0-16.0)
[2020-07-31 06:06] LABS: Hypochromasia 1+; Microcytosis 1+; Ovalocytes Slight; Platelet Estimate Adequate
[2020-07-31 07:35] LABS: Hepatitis B Core IgM Quant 0.14 Index; Hepatitis B Surface Ag Quant < 0.10 Index; Hepatitis B Surface Ag Result Non-Reactive (NonReactive); Hepatitis C Virus Ab Quant 0.06 Index; Hepatitis C Virus Ab Result Non-Reactive (NonReactive)
[2020-07-31] MEDS: LACTULOSE 20 GM/30 ML UDCUP PER TUBE SCH ×2 (08:05→20:27)
[2020-07-31] MEDS: PANTOPRAZOLE 40 MG VIAL IV SCH (08:05)
[2020-07-31] MEDS: ENOXAPARIN 40 MG/0.4 ML SYRINGE SUBCUT SCH (09:55)
[2020-07-31 12:43] LABS: ABG Base Excess 5.3 MMOL/L (-2.5-2.5); ABG HCO3 31.9 MMOL/L (20-26); ABG Oxygen Saturation 92.9 % (95-100); ABG PH 7.358 (7.35-7.45); ABG PO2 77.3 MM HG (80-95); ABG TCO2 33.7 MMOL/L (23-27)
[2020-07-31] MEDS ORDERED: SODIUM CHLORIDE 0.9% 1,000 ML IV SCH (13:31)
[2020-07-31] MEDS: oxyCODONE/ACETAMINOPHEN 5-325 MG TABLET PO PRN ×3 (14:45→23:28)
[2020-07-31] MEDS: HYDROmorphone 2 MG/1 ML VIAL IV PRN (23:45)
[2020-07-31] MEDS: OXYBUTYNIN 5 MG TABLET PO PRN (23:45)
[2020-08-01] MEDS: rOPINIRole 0.25 MG TABLET PO SCH ×2 (00:45→20:58)
[2020-08-01 03:08] LABS: ABG Base Excess 4.6 MMOL/L (-2.5-2.5); ABG HCO3 28.5 MMOL/L (20-26); ABG Oxygen Saturation 93.4 % (95-100); ABG PCO2 65.6 MM HG (35-48); ABG PH 7.305 (7.35-7.45); ABG PO2 83.2 MM HG (80-95); ABG TCO2 30.2 MMOL/L (23-27)
[2020-08-01] MEDS: oxyCODONE/ACETAMINOPHEN 5-325 MG TABLET PO PRN ×5 (03:58→21:12)
[2020-08-01] MEDS: HYDROmorphone 2 MG/1 ML VIAL IV PRN ×2 (05:00→10:11)
[2020-08-01 05:15] LABS: Calcium 8.1 MG/DL (8.5-10.1); Osmolality,Calculated 282.4 MOS/KG (273-304); Potassium 4.1 MMOL/L (3.5-5.1)
[2020-08-01 05:19] LABS: Albumin 2.6 G/DL (3.4-5.0); Bilirubin,Total 0.9 MG/DL (0.2-1.0); Calcium 8.3 MG/DL (8.5-10.1); Osmolality,Calculated 278.7 MOS/KG (273-304); Potassium 4.1 MMOL/L (3.5-5.1); Total Protein 5.9 G/DL (5.0-7.5)
[2020-08-01 05:28] LABS: Basophils % 0.4 % (0.0-0.8); Eosinophils # 0.1 10*3/uL (0.0-0.87); Hematocrit 33.5 VOL% (35.7-47.0); Immature Granulocytes % 0.6 %; Immature Granulocytes Absolute 0.06 #; Lymphocytes # 1.7 10*3/uL (1.4-4.0); Lymphocytes % 16.5 % (21.3-54.2); Mean Platelet Volume 11.9 FL (9.6-12.0); Monocytes % 9.5 % (1.7-12.7); Platelet Count 153 T/CUMM (130-400); Red Blood Count 3.99 MC/CUMM (3.8-5.5); Red Cell Distribution Width 19.9 % (9.3-17.3); White Blood Count 10.2 T/CUMM (4-12)
[2020-08-01 05:34] LABS: Hemoglobin 9.7 GM/DL (12.0-16.0)
[2020-08-01] MEDS: ENOXAPARIN 40 MG/0.4 ML SYRINGE SUBCUT SCH (08:15)
[2020-08-01] MEDS: ASCORBIC ACID 500 MG TABLET PO SCH (08:15)
[2020-08-01] MEDS: PANTOPRAZOLE 40 MG VIAL IV SCH (08:15)
[2020-08-01] MEDS: FERROUS SULFATE 325 MG TABLET PO SCH (08:15)
[2020-08-01] MEDS: OXYBUTYNIN 5 MG TABLET PO PRN ×2 (08:16→19:52)
[2020-08-01] MEDS: CHOLECALCIFEROL 1,000 UNIT TABLET PO SCH (08:17)
[2020-08-01] MEDS: LACTULOSE 20 GM/30 ML UDCUP PER TUBE SCH ×2 (08:17→22:13)
[2020-08-01] MEDS: BUDESONIDE/FORMOTEROL 160-4.5 INHALER 6 GM INH SCH ×2 (10:11→22:13)
[2020-08-01] MEDS: THEOPHYLLINE ER (24 HR) 400 MG CAPSULE PO SCH (10:11)
[2020-08-01 17:42] LABS: Osmolality, Serum 282 mOsm/kg (275 - 295); Osmolality, Urine 349 mOsm/kg (150 - 1150)
[2020-08-01] MEDS: AMITRIPTYLINE 25 MG TABLET PO SCH (20:58)
[2020-08-02] MEDS: oxyCODONE/ACETAMINOPHEN 5-325 MG TABLET PO PRN ×6 (01:12→23:04)
[2020-08-02 04:21] LABS: Calcium 8.4 MG/DL (8.5-10.1); Osmolality,Calculated 277.7 MOS/KG (273-304); Potassium 4.1 MMOL/L (3.5-5.1)
[2020-08-02 04:34] LABS: Basophils % 0.2 % (0.0-0.8); Eosinophils # 0.1 10*3/uL (0.0-0.87); Hematocrit 32.1 VOL% (35.7-47.0); Hemoglobin 9.1 GM/DL (12.0-16.0); Immature Granulocytes % 0.5 %; Immature Granulocytes Absolute 0.05 #; Lymphocytes # 1.4 10*3/uL (1.4-4.0); Lymphocytes % 12.8 % (21.3-54.2); Mean Corpuscular HGB Conc 28.3 GM/DL (32-36); Mean Corpuscular Volume 84.5 FL (87-102); Mean Platelet Volume 11.4 FL (9.6-12.0); Monocytes % 11.1 % (1.7-12.7); Neutrophils % 74.4 % (38.7-73.9); Platelet Count 133 T/CUMM (130-400); Red Cell Distribution Width 19.6 % (9.3-17.3); White Blood Count 10.8 T/CUMM (4-12)
[2020-08-02] MEDS: OXYBUTYNIN 5 MG TABLET PO PRN ×2 (05:09→13:16)
[2020-08-02 06:44] LABS: Hypochromasia 3+; Microcytosis 1+
[2020-08-02 06:45] LABS: Polychromasia Slight
[2020-08-02 06:46] LABS: Ovalocytes Slight; Stomatocytes Few
[2020-08-02 06:47] LABS: Anisocytosis 2+; Platelet Estimate Normal
[2020-08-02] MEDS ORDERED: TAMSULOSIN 0.4 MG CAPSULE PO SCH (09:00)
[2020-08-02] MEDS: AMITRIPTYLINE 25 MG TABLET PO SCH ×2 (09:29→21:17)
[2020-08-02] MEDS: ENOXAPARIN 40 MG/0.4 ML SYRINGE SUBCUT SCH (09:29)
[2020-08-02] MEDS: FERROUS SULFATE 325 MG TABLET PO SCH (09:29)
[2020-08-02] MEDS: THEOPHYLLINE ER (24 HR) 400 MG CAPSULE PO SCH (09:31)
[2020-08-02] MEDS: ASCORBIC ACID 500 MG TABLET PO SCH (09:31)
[2020-08-02] MEDS: BUDESONIDE/FORMOTEROL 160-4.5 INHALER 6 GM INH SCH ×2 (09:31→21:18)
[2020-08-02] MEDS: CHOLECALCIFEROL 1,000 UNIT TABLET PO SCH (09:31)
[2020-08-02] MEDS: LACTULOSE 20 GM/30 ML UDCUP PER TUBE SCH ×2 (09:32→21:17)
[2020-08-02] MEDS: PHENAZOPYRIDINE 95 MG TABLET PO SCH ×3 (10:05→17:56)
[2020-08-02] MEDS: HYDROmorphone 2 MG/1 ML VIAL IV PRN ×2 (15:24→21:17)
[2020-08-02] MEDS: rOPINIRole 0.25 MG TABLET PO SCH (21:16)
[2020-08-03] MEDS: HYDROmorphone 2 MG/1 ML VIAL IV PRN (04:01)
[2020-08-03] MEDS: OXYBUTYNIN 5 MG TABLET PO PRN ×2 (04:01→08:16)
[2020-08-03] MEDS: oxyCODONE/ACETAMINOPHEN 5-325 MG TABLET PO PRN ×4 (05:24→16:25)
[2020-08-03] MEDS: PHENAZOPYRIDINE 95 MG TABLET PO SCH ×3 (08:15→16:24)
[2020-08-03] MEDS: ENOXAPARIN 40 MG/0.4 ML SYRINGE SUBCUT SCH (08:15)
[2020-08-03] MEDS: CHOLECALCIFEROL 1,000 UNIT TABLET PO SCH (08:15)
[2020-08-03] MEDS: FERROUS SULFATE 325 MG TABLET PO SCH (08:16)
[2020-08-03] MEDS: ASCORBIC ACID 500 MG TABLET PO SCH (08:16)
[2020-08-03] MEDS: THEOPHYLLINE ER (24 HR) 400 MG CAPSULE PO SCH (08:16)
[2020-08-03] MEDS: AMITRIPTYLINE 25 MG TABLET PO SCH (08:16)
[2020-08-03] MEDS: BUDESONIDE/FORMOTEROL 160-4.5 INHALER 6 GM INH SCH (08:17)
[2020-08-03] MEDS: LACTULOSE 20 GM/30 ML UDCUP PER TUBE SCH (08:17)
[2020-08-03] MEDS ORDERED: HYDROmorphone 2 MG TABLET PO PRN (10:27)
[2020-08-03 15:39] VITALS: BP 125/62
== END 2020-08-03 16:50 | disposition home or self-care (01) | DRG 208 ==
LOC: EDBD → EDUNIT# → N.ED 09:21 → N.EDINP 10:55 → SUATTDRO 10:55 → N.ICU 14:18 → N.4E 08-01 12:24
PROVIDERS: ADMIT Internal Medicine; ATTEND Internal Medicine

== ENCOUNTER 2020-11-15 09:21 | Inpatient (IN) ==
[2020-11-15] MEDS ORDERED: ALBUTEROL 2.5 MG/3 ML NEB RESP TX STA (09:35)
[2020-11-15 10:04] LABS: ABG Base Excess -7.6 MMOL/L (-2.5-2.5); ABG HCO3 18.2 MMOL/L (20-26); ABG Oxygen Saturation 97.9 % (95-100); ABG TCO2 24.5 MMOL/L (23-27)
[2020-11-15 10:05] LABS: ABG PCO2 91.6 MM HG (35-48); ABG PH 7.048 (7.35-7.45)
[2020-11-15 10:35] LABS: INR 1.2; PT Patient Result 12.8 SECS (10.5-12.0)
[2020-11-15 10:39] LABS: Acetaminophen < 2.0 UG/ML (10-30); Salicylate < 2.8 MG/DL (2.8-20)
[2020-11-15] MEDS ORDERED: SODIUM CHLORIDE 0.9% 500 ML IV STA (10:41)
[2020-11-15] MEDS ORDERED: ALBUTEROL 2.5 MG/3 ML NEB RESP TX PRN (10:41)
[2020-11-15] MEDS ORDERED: ONDANSETRON 4 MG/2 ML VIAL IV PRN (10:43)
[2020-11-15 10:48] LABS: Basophils % 0.3 % (0.0-0.8); Eosinophils % 0.1 % (0.00-10.9); Hematocrit 37.4 VOL% (35.7-47.0); Immature Granulocytes % 6.5 %; Immature Granulocytes Absolute 0.97 #; Lymphocytes # 1.7 10*3/uL (1.4-4.0); Lymphocytes % 11.2 % (21.3-54.2); Mean Corpuscular HGB Conc 26.2 GM/DL (32-36); Mean Corpuscular Volume 92.8 FL (87-102); Mean Platelet Volume 10.2 FL (9.6-12.0); Monocytes % 3.8 % (1.7-12.7); NRBC # 0.35 10*3/uL; Neutrophils % 78.1 % (38.7-73.9); Platelet Count 257 T/CUMM (130-400); Red Blood Count 4.03 MC/CUMM (3.8-5.5); Red Cell Distribution Width 21.8 % (9.3-17.3); White Blood Count 14.9 T/CUMM (4-12)
[2020-11-15 10:50] LABS: Hemoglobin 9.8 GM/DL (12.0-16.0)
[2020-11-15 10:53] LABS: Lymphocytes 8 % (20-55); Nucleated Red Blood Cells 5 (0-5); Segmented Neutrophils 88 % (50-85); Total Cells Counted 100
[2020-11-15 10:54] LABS: Hypochromasia 1+; Microcytosis 1+; Platelet Estimate Adequate
[2020-11-15] MEDS ORDERED: ROCURONIUM 100 MG/10 ML VIAL IV STA (10:54)
[2020-11-15 10:56] LABS: Bilirubin,Urine Negative (Negative); Blood, Urine Large mg/dL (Negative); Glucose,Urine (UA) Negative (Negative); Ketones,Urine Negative (Negative); Mucus,Urine Many /LPF (Occasional); Nitrite,Urine Negative (Negative); Protein,Urine 100 MG/DL; RBC,Urine 218 /HPF (0-4); Urine Appearance CLOUDY (Clear); Urine Color Yellow (Yellow); Urine Specific Gravity 1.016 (1.001-1.035); Urine Urobilinogen < 2.0 EU/DL (0.2-1.0)
[2020-11-15] MEDS ORDERED: ETOMIDATE 20 MG/10 ML VIAL IV STA (10:56)
[2020-11-15 11:07] LABS: ABG Base Excess -4.5 MMOL/L (-2.5-2.5); ABG Oxygen Saturation 98.3 % (95-100); ABG PO2 134.6 MM HG (80-95); ABG TCO2 25.9 MMOL/L (23-27)
[2020-11-15 11:08] LABS: ABG PH 7.198 (7.35-7.45)
[2020-11-15 11:10] LABS: Barbiturates Screen,Urine Negative (Negative); Benzodiazepines Screen,Urine Negative (Negative); Cannabinoid Screen,Urine Negative (Negative); Opiate Screen,Urine Positive (Negative); Phencyclidine Screen,Urine Negative (Negative)
[2020-11-15] MEDS: LACTATED RINGERS 1,000 ML IV SCH ×2 (11:15→20:59)
[2020-11-15] MEDS: ENOXAPARIN 40 MG/0.4 ML SYRINGE SUBCUT SCH (11:52)
[2020-11-15] MEDS: MIDAZOLAM 100 MG in SODIUM CHLORIDE 0.9% 80 ML IV PRN (12:27)
[2020-11-15 19:49] LABS: Calcium 7.8 MG/DL (8.5-10.1)
[2020-11-15 19:51] LABS: Potassium 6.3 MMOL/L (3.5-5.1)
[2020-11-15] MEDS: MORPHINE 4 MG/1 ML VIAL IV PRN (19:51)
[2020-11-15 21:09] LABS: ABG Base Excess 2.3 MMOL/L (-2.5-2.5); ABG HCO3 29.3 MMOL/L (20-26); ABG Oxygen Saturation 97.3 % (95-100); ABG PH 7.314 (7.35-7.45); ABG PO2 104.7 MM HG (80-95); ABG TCO2 31.1 MMOL/L (23-27); Allen Test Positive; Pt O2 Delivery Device Ventilator
[2020-11-15] MEDS: SODIUM BICARB INJ 100 MEQ in DEXTROSE 5% 1,000 ML IV SCH (21:16)
[2020-11-16 02:47] LABS: ABG Base Excess 4.1 MMOL/L (-2.5-2.5); ABG HCO3 28.1 MMOL/L (20-26); ABG Oxygen Saturation 96.4 % (95-100); ABG PCO2 61.3 MM HG (35-48); ABG PH 7.319 (7.35-7.45); ABG PO2 97.7 MM HG (80-95); ABG TCO2 29.2 MMOL/L (23-27)
[2020-11-16] MEDS: MORPHINE 4 MG/1 ML VIAL IV PRN (02:52)
[2020-11-16 03:43] LABS: Basophils % 0.1 % (0.0-0.8); Eosinophils % 0.2 % (0.00-10.9); Hemoglobin 8.8 GM/DL (12.0-16.0); Immature Granulocytes Absolute 0.09 #; Lymphocytes # 1.4 10*3/uL (1.4-4.0); Lymphocytes % 15.3 % (21.3-54.2); Mean Corpuscular HGB Conc 29.3 GM/DL (32-36); Mean Corpuscular Volume 84.3 FL (87-102); Monocytes % 6.4 % (1.7-12.7); Platelet Count 198 T/CUMM (130-400); Red Blood Count 3.56 MC/CUMM (3.8-5.5); Red Cell Distribution Width 21.3 % (9.3-17.3); White Blood Count 9.3 T/CUMM (4-12)
[2020-11-16 04:12] LABS: Alanine Aminotransferase 827 U/L (13-56); Albumin 2.1 G/DL (3.4-5.0); Alkaline Phosphatase 187 U/L (45-117); Aspartate Amino Transferase 1461 U/L (0-37); Bilirubin,Total < 0.39 MG/DL (0.2-1.0); Blood Urea Nitrogen 37 MG/DL (7-18); Calcium 7.9 MG/DL (8.5-10.1); Carbon Dioxide 29 MMOL/L (21-32); Estimated Glom Filtration Rate 42 ML/MIN; Glucose 89 MG/DL (74-106); Osmolality,Calculated 284.5 MOS/KG (273-304); Potassium 5.3 MMOL/L (3.5-5.1); Sodium 139 MMOL/L (136-145); Total Protein 6.4 G/DL (6.4-8.2)
[2020-11-16] MEDS: MIDAZOLAM 100 MG in SODIUM CHLORIDE 0.9% 80 ML IV PRN ×2 (07:48→23:05)
[2020-11-16] MEDS ORDERED: GABAPENTIN 100 MG CAPSULE PO PRN (08:04)
[2020-11-16] MEDS ORDERED: FUROSEMIDE 40 MG/4 ML VIAL IV ONE (08:07)
[2020-11-16] MEDS: fentaNYL 50 MCG/HR PATCH TRANSDERM SCH (08:33)
[2020-11-16] MEDS: SODIUM BICARB INJ 100 MEQ in DEXTROSE 5% 1,000 ML IV SCH (08:49)
[2020-11-16] MEDS: ENOXAPARIN 40 MG/0.4 ML SYRINGE SUBCUT SCH (11:26)
[2020-11-16] MEDS: HYDROmorphone 2 MG/1 ML VIAL IV PRN ×3 (14:11→20:28)
[2020-11-16] MEDS ORDERED: DEXTROSE 50% 25 GM/50 ML VIAL IV PRN (14:11)
[2020-11-16] MEDS ORDERED: GLUCAGON 1 MG VIAL IM PRN (14:11)
[2020-11-16] MEDS: FUROSEMIDE 40 MG/4 ML VIAL IV SCH (20:27)
[2020-11-17] MEDS: HYDROmorphone 2 MG/1 ML VIAL IV PRN ×2 (01:40→09:04)
[2020-11-17 03:40] LABS: ABG Base Excess 10.4 MMOL/L (-2.5-2.5); ABG HCO3 34.2 MMOL/L (20-26); ABG Oxygen Saturation 98.7 % (95-100); ABG PCO2 60.9 MM HG (35-48); ABG PH 7.395 (7.35-7.45); ABG TCO2 34.2 MMOL/L (23-27)
[2020-11-17 05:06] LABS: Albumin 2.3 G/DL (3.4-5.0); Bilirubin,Total 0.4 MG/DL (0.2-1.0); Calcium 8.3 MG/DL (8.5-10.1); Osmolality,Calculated 286.7 MOS/KG (273-304); Potassium 4.4 MMOL/L (3.5-5.1); Total Protein 6.7 G/DL (6.4-8.2)
[2020-11-17 05:08] LABS: Basophils % 0.1 % (0.0-0.8); Eosinophils % 0.3 % (0.00-10.9); Hematocrit 30.6 VOL% (35.7-47.0); Immature Granulocytes % 1.5 %; Immature Granulocytes Absolute 0.14 #; Lymphocytes # 1.3 10*3/uL (1.4-4.0); Mean Corpuscular HGB Conc 29.1 GM/DL (32-36); Mean Corpuscular Volume 84.3 FL (87-102); Mean Platelet Volume 10.3 FL (9.6-12.0); Monocytes % 6.3 % (1.7-12.7); NRBC # 0.05 10*3/uL; Neutrophils % 77.8 % (38.7-73.9); Platelet Count 204 T/CUMM (130-400); Red Blood Count 3.63 MC/CUMM (3.8-5.5); Red Cell Distribution Width 21.9 % (9.3-17.3); White Blood Count 9.5 T/CUMM (4-12)
[2020-11-17 05:10] LABS: Hemoglobin 8.9 GM/DL (12.0-16.0)
[2020-11-17] MEDS: methylPREDNISolone SOD SUC 40 MG/1 ML VIAL IV SCH ×3 (08:50→23:38)
[2020-11-17] MEDS: FUROSEMIDE 40 MG/4 ML VIAL IV SCH (08:59)
[2020-11-17] MEDS: PANTOPRAZOLE 40 MG VIAL IV SCH (08:59)
[2020-11-17] MEDS ORDERED: rOPINIRole 0.25 MG TABLET PO PRN (10:14)
[2020-11-17] MEDS: MIDAZOLAM 100 MG in SODIUM CHLORIDE 0.9% 80 ML IV PRN ×2 (11:00→23:34)
[2020-11-17] MEDS: TAMSULOSIN 0.4 MG CAPSULE PO SCH (11:30)
[2020-11-17] MEDS: ENOXAPARIN 40 MG/0.4 ML SYRINGE SUBCUT SCH (11:30)
[2020-11-17] MEDS: CLINDAMYCIN INJ 600 MG/50 ML PREMIX IV SCH (19:53)
[2020-11-17] MEDS ORDERED: FUROSEMIDE 40 MG/4 ML VIAL IV SCH (21:00)
[2020-11-18] MEDS: HYDROmorphone 2 MG/1 ML VIAL IV PRN ×3 (01:19→23:15)
[2020-11-18] MEDS: CLINDAMYCIN INJ 600 MG/50 ML PREMIX IV SCH ×3 (02:40→18:10)
[2020-11-18 04:10] LABS: Basophils % 0.1 % (0.0-0.8); Hematocrit 32.3 VOL% (35.7-47.0); Hemoglobin 9.5 GM/DL (12.0-16.0); Immature Granulocytes % 0.9 %; Immature Granulocytes Absolute 0.09 #; Lymphocytes # 0.7 10*3/uL (1.4-4.0); Lymphocytes % 7.1 % (21.3-54.2); Mean Corpuscular HGB Conc 29.4 GM/DL (32-36); Mean Corpuscular Volume 82.6 FL (87-102); Mean Platelet Volume 10.7 FL (9.6-12.0); Monocytes % 3.6 % (1.7-12.7); NRBC # 0.03 10*3/uL; Neutrophils % 88.3 % (38.7-73.9); Platelet Count 207 T/CUMM (130-400); Red Blood Count 3.91 MC/CUMM (3.8-5.5); Red Cell Distribution Width 21.5 % (9.3-17.3); White Blood Count 10.1 T/CUMM (4-12)
[2020-11-18 04:25] LABS: Albumin 2.1 G/DL (3.4-5.0); Bilirubin,Total 0.4 MG/DL (0.2-1.0); Calcium 8.3 MG/DL (8.5-10.1); Osmolality,Calculated 292.5 MOS/KG (273-304); Potassium 4.2 MMOL/L (3.5-5.1); Total Protein 7.2 G/DL (6.4-8.2)
[2020-11-18 04:52] LABS: Allen Test Positive; Pt O2 Delivery Device Ventilator
[2020-11-18 04:53] LABS: ABG Base Excess 12.1 MMOL/L (-2.5-2.5); ABG HCO3 35.8 MMOL/L (20-26); ABG Oxygen Saturation 93.4 % (95-100); ABG PCO2 55.8 MM HG (35-48); ABG PH 7.444 (7.35-7.45)
[2020-11-18] MEDS: FLUoxetine 20 MG CAPSULE PO SCH (08:29)
[2020-11-18] MEDS: ASCORBIC ACID 500 MG TABLET PO SCH (08:29)
[2020-11-18] MEDS: TAMSULOSIN 0.4 MG CAPSULE PO SCH (08:29)
[2020-11-18] MEDS: methylPREDNISolone SOD SUC 40 MG/1 ML VIAL IV SCH ×3 (08:30→23:14)
[2020-11-18] MEDS: PANTOPRAZOLE 40 MG VIAL IV SCH (08:31)
[2020-11-18] MEDS: FUROSEMIDE 40 MG/4 ML VIAL IV SCH (08:31)
[2020-11-18] MEDS: ENOXAPARIN 40 MG/0.4 ML SYRINGE SUBCUT SCH (10:54)
[2020-11-18] MEDS: MIDAZOLAM 100 MG in SODIUM CHLORIDE 0.9% 80 ML IV PRN ×2 (10:56→23:07)
[2020-11-18] MEDS: ALBUTEROL/IPRATROPIUM 3 ML NEB RESP TX SCH ×2 (13:15→19:40)
[2020-11-18] MEDS: cefTRIAXone 1,000 MG in SODIUM CHLORIDE 0.9% 100 ML IV SCH (13:42)
[2020-11-18] MEDS ORDERED: IBUPROFEN 100 MG/5 ML UDCUP PO PRN (16:32)
[2020-11-18] MEDS ORDERED: IBUPROFEN 600 MG TABLET PO PRN (16:46)
[2020-11-18] MEDS ORDERED: POTASSIUM CHLORIDE 20 MEQ TABLET PO ONE (17:43)
[2020-11-18] MEDS ORDERED: FUROSEMIDE 40 MG/4 ML VIAL IV ONE (17:43)
[2020-11-19] MEDS: ALBUTEROL/IPRATROPIUM 3 ML NEB RESP TX SCH ×4 (01:26→18:07)
[2020-11-19] MEDS: CLINDAMYCIN INJ 600 MG/50 ML PREMIX IV SCH ×3 (02:14→19:30)
[2020-11-19 04:30] LABS: Basophils % 0.1 % (0.0-0.8); Hemoglobin 9.4 GM/DL (12.0-16.0); Immature Granulocytes % 1.2 %; Immature Granulocytes Absolute 0.11 #; Lymphocytes # 0.6 10*3/uL (1.4-4.0); Lymphocytes % 6.5 % (21.3-54.2); Mean Corpuscular HGB Conc 29.4 GM/DL (32-36); Mean Corpuscular Volume 84.4 FL (87-102); Mean Platelet Volume 10.8 FL (9.6-12.0); Monocytes % 6.3 % (1.7-12.7); NRBC # 0.06 10*3/uL; Neutrophils % 85.9 % (38.7-73.9); Platelet Count 211 T/CUMM (130-400); Red Blood Count 3.79 MC/CUMM (3.8-5.5); Red Cell Distribution Width 21.9 % (9.3-17.3); White Blood Count 9.3 T/CUMM (4-12)
[2020-11-19 04:38] LABS: ABG Base Excess 11.8 MMOL/L (-2.5-2.5); ABG HCO3 35.4 MMOL/L (20-26); ABG Oxygen Saturation 93.3 % (95-100); ABG PCO2 62.4 MM HG (35-48); ABG PH 7.405 (7.35-7.45); ABG PO2 74.5 MM HG (80-95); ABG TCO2 35.1 MMOL/L (23-27); Allen Test Positive; Pt O2 Delivery Device Ventilator
[2020-11-19 04:48] LABS: Calcium 8.2 MG/DL (8.5-10.1); Osmolality,Calculated 304.1 MOS/KG (273-304); Potassium 3.9 MMOL/L (3.5-5.1)
[2020-11-19] MEDS: HYDROmorphone 2 MG/1 ML VIAL IV PRN ×3 (05:27→16:57)
[2020-11-19 06:04] VITALS: BP 121/70
[2020-11-19] MEDS: methylPREDNISolone SOD SUC 40 MG/1 ML VIAL IV SCH ×2 (07:51→16:12)
[2020-11-19] MEDS: FLUoxetine 20 MG CAPSULE PO SCH (09:07)
[2020-11-19] MEDS: FUROSEMIDE 40 MG/4 ML VIAL IV SCH (09:07)
[2020-11-19] MEDS: TAMSULOSIN 0.4 MG CAPSULE PO SCH (09:07)
[2020-11-19] MEDS: PANTOPRAZOLE 40 MG VIAL IV SCH (09:10)
[2020-11-19] MEDS: fentaNYL 50 MCG/HR PATCH TRANSDERM SCH (09:18)
[2020-11-19] MEDS: ASCORBIC ACID 500 MG TABLET PO SCH (09:22)
[2020-11-19] MEDS: MIDAZOLAM 100 MG in SODIUM CHLORIDE 0.9% 80 ML IV PRN ×2 (09:24→19:55)
[2020-11-19] MEDS: ENOXAPARIN 40 MG/0.4 ML SYRINGE SUBCUT SCH (10:56)
[2020-11-19] MEDS ORDERED: POTASSIUM CHLORIDE 20 MEQ/15 ML UDCUP PER TUBE ONE (11:41)
[2020-11-19] MEDS: HYDROmorphone 2 MG TABLET PO PRN ×2 (12:05→20:54)
[2020-11-19] MEDS: cefTRIAXone 1,000 MG in SODIUM CHLORIDE 0.9% 100 ML IV SCH (12:27)
[2020-11-20] MEDS: methylPREDNISolone SOD SUC 40 MG/1 ML VIAL IV SCH ×4 (00:41→23:20)
[2020-11-20] MEDS: ALBUTEROL/IPRATROPIUM 3 ML NEB RESP TX SCH ×4 (01:00→18:00)
[2020-11-20] MEDS: HYDROmorphone 2 MG/1 ML VIAL IV PRN ×2 (01:23→13:59)
[2020-11-20] MEDS: CLINDAMYCIN INJ 600 MG/50 ML PREMIX IV SCH ×3 (03:02→18:22)
[2020-11-20 03:14] LABS: ABG Base Excess 13.4 MMOL/L (-2.5-2.5); ABG HCO3 37.1 MMOL/L (20-26); ABG Oxygen Saturation 94.7 % (95-100); ABG PCO2 64.2 MM HG (35-48); ABG PO2 79.4 MM HG (80-95); Allen Test Positive; Pt O2 Delivery Device Ventilator
[2020-11-20] MEDS: HYDROmorphone 2 MG TABLET PO PRN ×4 (04:59→22:33)
[2020-11-20 05:38] LABS: Basophils % 0.1 % (0.0-0.8); Immature Granulocytes % 1.3 %; Immature Granulocytes Absolute 0.11 #; Lymphocytes # 0.6 10*3/uL (1.4-4.0); Lymphocytes % 7.3 % (21.3-54.2); Mean Corpuscular HGB Conc 28.6 GM/DL (32-36); Mean Corpuscular Volume 86.4 FL (87-102); Mean Platelet Volume 11.4 FL (9.6-12.0); Monocytes % 8.4 % (1.7-12.7); NRBC # 0.03 10*3/uL; Neutrophils % 82.9 % (38.7-73.9); Platelet Count 228 T/CUMM (130-400); Red Blood Count 4.05 MC/CUMM (3.8-5.5); Red Cell Distribution Width 22.7 % (9.3-17.3); White Blood Count 8.5 T/CUMM (4-12)
[2020-11-20 05:40] LABS: Albumin 2.4 G/DL (3.4-5.0); Bilirubin,Total 0.6 MG/DL (0.2-1.0); Calcium 8.3 MG/DL (8.5-10.1); Osmolality,Calculated 314.6 MOS/KG (273-304); Potassium 4.4 MMOL/L (3.5-5.1); Total Protein 7.4 G/DL (6.4-8.2)
[2020-11-20] MEDS: MIDAZOLAM 100 MG in SODIUM CHLORIDE 0.9% 80 ML IV PRN ×2 (06:03→14:25)
[2020-11-20] MEDS: TAMSULOSIN 0.4 MG CAPSULE PO SCH (09:13)
[2020-11-20] MEDS: FLUoxetine 20 MG CAPSULE PO SCH (09:14)
[2020-11-20] MEDS: ASCORBIC ACID 500 MG TABLET PO SCH (09:14)
[2020-11-20] MEDS: FUROSEMIDE 40 MG/4 ML VIAL IV SCH (09:15)
[2020-11-20] MEDS: PANTOPRAZOLE 40 MG VIAL IV SCH (09:17)
[2020-11-20] MEDS: ENOXAPARIN 40 MG/0.4 ML SYRINGE SUBCUT SCH (12:39)
[2020-11-20] MEDS: cefTRIAXone 1,000 MG in SODIUM CHLORIDE 0.9% 100 ML IV SCH (12:40)
[2020-11-20] MEDS: LORazepam 2 MG/1 ML VIAL IV PRN ×2 (12:53→17:01)
[2020-11-20] MEDS: IBUPROFEN 600 MG TABLET PO PRN (20:01)
[2020-11-21] MEDS: ALBUTEROL/IPRATROPIUM 3 ML NEB RESP TX SCH ×4 (00:36→19:20)
[2020-11-21] MEDS: MIDAZOLAM 100 MG in SODIUM CHLORIDE 0.9% 80 ML IV PRN ×3 (01:03→17:20)
[2020-11-21] MEDS: HYDROmorphone 2 MG/1 ML VIAL IV PRN ×4 (01:33→21:01)
[2020-11-21] MEDS: CLINDAMYCIN INJ 600 MG/50 ML PREMIX IV SCH (02:29)
[2020-11-21 02:38] LABS: ABG Base Excess 14.1 MMOL/L (-2.5-2.5); ABG HCO3 40.4 MMOL/L (20-26); ABG Oxygen Saturation 90.4 % (95-100); ABG PCO2 61.6 MM HG (35-48); ABG PH 7.435 (7.35-7.45); ABG PO2 62.8 MM HG (80-95); ABG TCO2 42.3 MMOL/L (23-27)
[2020-11-21] MEDS: LORazepam 2 MG/1 ML VIAL IV PRN ×3 (03:49→23:40)
[2020-11-21] MEDS: HYDROmorphone 2 MG TABLET PO PRN ×2 (03:49→08:20)
[2020-11-21 04:12] LABS: Alanine Aminotransferase 506 U/L (13-56); Albumin 2.4 G/DL (3.4-5.0); Alkaline Phosphatase 138 U/L (45-117); Aspartate Amino Transferase 83 U/L (0-37); Bilirubin,Total < 0.39 MG/DL (0.2-1.0); Blood Urea Nitrogen 80 MG/DL (7-18); Calcium 8.4 MG/DL (8.5-10.1); Carbon Dioxide 39 MMOL/L (21-32); Estimated Glom Filtration Rate 67 ML/MIN; Glucose 138 MG/DL (74-106); Osmolality,Calculated 311.8 MOS/KG (273-304); Potassium 4.8 MMOL/L (3.5-5.1); Sodium 144 MMOL/L (136-145)
[2020-11-21 04:34] LABS: Basophils % 0.1 % (0.0-0.8); Hematocrit 34.4 VOL% (35.7-47.0); Hemoglobin 9.5 GM/DL (12.0-16.0); Immature Granulocytes Absolute 0.16 #; Lymphocytes # 0.8 10*3/uL (1.4-4.0); Lymphocytes % 9.9 % (21.3-54.2); Mean Corpuscular HGB Conc 27.6 GM/DL (32-36); Mean Corpuscular Volume 87.5 FL (87-102); Mean Platelet Volume 11.8 FL (9.6-12.0); Monocytes % 11.2 % (1.7-12.7); NRBC # 0.03 10*3/uL; Neutrophils % 76.8 % (38.7-73.9); Platelet Count 219 T/CUMM (130-400); Red Blood Count 3.93 MC/CUMM (3.8-5.5)
[2020-11-21 05:08] LABS: Hypochromasia 1+
[2020-11-21 05:09] LABS: Microcytosis 2+; Ovalocytes Slight; Platelet Estimate Normal
[2020-11-21 05:10] LABS: Polychromasia Slight
[2020-11-21] MEDS: methylPREDNISolone SOD SUC 40 MG/1 ML VIAL IV SCH ×2 (08:19→16:44)
[2020-11-21] MEDS: TAMSULOSIN 0.4 MG CAPSULE PO SCH (08:20)
[2020-11-21] MEDS: FLUoxetine 20 MG CAPSULE PO SCH (08:20)
[2020-11-21] MEDS: PANTOPRAZOLE 40 MG VIAL IV SCH (08:20)
[2020-11-21] MEDS: FUROSEMIDE 40 MG/4 ML VIAL IV SCH (08:20)
[2020-11-21] MEDS: ASCORBIC ACID 500 MG TABLET PO SCH (08:20)
[2020-11-21] MEDS: VANCOMYCIN INJ 2,500 MG in SODIUM CHLORIDE 0.9% 500 ML IV SCH (09:52)
[2020-11-21] MEDS: cefTRIAXone 1,000 MG in SODIUM CHLORIDE 0.9% 100 ML IV SCH (12:26)
[2020-11-21] MEDS: ENOXAPARIN 40 MG/0.4 ML SYRINGE SUBCUT SCH (12:27)
[2020-11-21] MEDS: IBUPROFEN 600 MG TABLET PO PRN (12:27)
[2020-11-22] MEDS: ALBUTEROL/IPRATROPIUM 3 ML NEB RESP TX SCH ×4 (00:12→19:11)
[2020-11-22] MEDS: methylPREDNISolone SOD SUC 40 MG/1 ML VIAL IV SCH ×3 (00:25→16:31)
[2020-11-22] MEDS: MIDAZOLAM 100 MG in SODIUM CHLORIDE 0.9% 80 ML IV PRN ×3 (00:48→16:02)
[2020-11-22] MEDS: HYDROmorphone 2 MG/1 ML VIAL IV PRN ×2 (02:30→08:43)
[2020-11-22 04:51] LABS: Albumin 2.5 G/DL (3.4-5.0); Bilirubin,Total 0.8 MG/DL (0.2-1.0); Calcium 8.9 MG/DL (8.5-10.1); Osmolality,Calculated 319.4 MOS/KG (273-304); Potassium 4.3 MMOL/L (3.5-5.1); Total Protein 7.1 G/DL (6.4-8.2)
[2020-11-22 04:53] LABS: ABG Base Excess 11.3 MMOL/L (-2.5-2.5); ABG Oxygen Saturation 95.9 % (95-100); ABG PCO2 52.7 MM HG (35-48); ABG PH 7.456 (7.35-7.45); ABG PO2 84.9 MM HG (80-95); ABG TCO2 33.5 MMOL/L (23-27); Allen Test Positive; Pt O2 Delivery Device Ventilator
[2020-11-22 05:39] LABS: Basophils % 0.2 % (0.0-0.8); Hematocrit 35.7 VOL% (35.7-47.0); Hemoglobin 10.1 GM/DL (12.0-16.0); Immature Granulocytes % 2.9 %; Immature Granulocytes Absolute 0.29 #; Lymphocytes # 1.2 10*3/uL (1.4-4.0); Lymphocytes % 12.1 % (21.3-54.2); Mean Corpuscular HGB Conc 28.3 GM/DL (32-36); Mean Corpuscular Volume 88.1 FL (87-102); Monocytes % 10.5 % (1.7-12.7); NRBC # 0.02 10*3/uL; Neutrophils % 74.3 % (38.7-73.9); Platelet Count 185 T/CUMM (130-400); Red Blood Count 4.05 MC/CUMM (3.8-5.5); Red Cell Distribution Width 23.5 % (9.3-17.3)
[2020-11-22 06:23] LABS: Anisocytosis 2+; Macrocytosis Slight; Ovalocytes Few; Platelet Estimate Normal; Tear Drop Cells Few
[2020-11-22] MEDS ORDERED: fentaNYL INJ 1,250 MCG in SODIUM CHLORIDE 0.9% 225 ML IV PRN (06:43)
[2020-11-22] MEDS: fentaNYL 50 MCG/HR PATCH TRANSDERM SCH (08:41)
[2020-11-22] MEDS: TAMSULOSIN 0.4 MG CAPSULE PO SCH (08:41)
[2020-11-22] MEDS: FUROSEMIDE 40 MG/4 ML VIAL IV SCH (08:41)
[2020-11-22] MEDS: PANTOPRAZOLE 40 MG VIAL IV SCH (08:43)
[2020-11-22] MEDS: FLUoxetine 20 MG CAPSULE PO SCH (08:43)
[2020-11-22] MEDS: ASCORBIC ACID 500 MG TABLET PO SCH (08:43)
[2020-11-22] MEDS: VANCOMYCIN INJ 2,500 MG in SODIUM CHLORIDE 0.9% 500 ML IV SCH (10:15)
[2020-11-22] MEDS: cefTRIAXone 1,000 MG in SODIUM CHLORIDE 0.9% 100 ML IV SCH (13:20)
[2020-11-22] MEDS: ENOXAPARIN 40 MG/0.4 ML SYRINGE SUBCUT SCH (13:20)
[2020-11-22] MEDS: fentaNYL INJ 2,500 MCG in SODIUM CHLORIDE 0.9% 450 ML IV PRN ×2 (13:21→20:32)
[2020-11-23] MEDS: methylPREDNISolone SOD SUC 40 MG/1 ML VIAL IV SCH ×3 (00:04→15:37)
[2020-11-23] MEDS: ALBUTEROL/IPRATROPIUM 3 ML NEB RESP TX SCH ×4 (00:18→19:32)
[2020-11-23] MEDS: MIDAZOLAM 100 MG in SODIUM CHLORIDE 0.9% 80 ML IV PRN ×5 (00:39→23:16)
[2020-11-23] MEDS: fentaNYL INJ 2,500 MCG in SODIUM CHLORIDE 0.9% 450 ML IV PRN ×4 (03:41→22:25)
[2020-11-23 04:22] LABS: ABG Base Excess 8.8 MMOL/L (-2.5-2.5); ABG HCO3 32.5 MMOL/L (20-26); ABG Oxygen Saturation 96.3 % (95-100); ABG PCO2 50.1 MM HG (35-48); ABG PH 7.444 (7.35-7.45); ABG PO2 86.9 MM HG (80-95); ABG TCO2 30.8 MMOL/L (23-27); Allen Test Positive; Pt O2 Delivery Device Ventilator
[2020-11-23 05:22] LABS: Basophils % 0.2 % (0.0-0.8); Hematocrit 34.5 VOL% (35.7-47.0); Hemoglobin 9.8 GM/DL (12.0-16.0); Immature Granulocytes % 4.6 %; Immature Granulocytes Absolute 0.42 #; Lymphocytes # 0.8 10*3/uL (1.4-4.0); Lymphocytes % 8.4 % (21.3-54.2); Mean Corpuscular HGB Conc 28.4 GM/DL (32-36); Mean Corpuscular Volume 87.6 FL (87-102); Mean Platelet Volume 11.6 FL (9.6-12.0); Monocytes % 9.3 % (1.7-12.7); NRBC # 0.03 10*3/uL; Neutrophils % 77.5 % (38.7-73.9); Platelet Count 167 T/CUMM (130-400); Red Blood Count 3.94 MC/CUMM (3.8-5.5); Red Cell Distribution Width 23.9 % (9.3-17.3); White Blood Count 9.1 T/CUMM (4-12)
[2020-11-23 05:23] LABS: Albumin 2.5 G/DL (3.4-5.0); Bilirubin,Total 0.6 MG/DL (0.2-1.0); Calcium 8.5 MG/DL (8.5-10.1); Osmolality,Calculated 317.3 MOS/KG (273-304); Potassium 4.3 MMOL/L (3.5-5.1); Total Protein 6.7 G/DL (6.4-8.2)
[2020-11-23 05:28] LABS: Hypochromasia 1+; Microcytosis 1+; Platelet Estimate Adequate
[2020-11-23] MEDS: PANTOPRAZOLE 40 MG VIAL IV SCH (08:19)
[2020-11-23] MEDS: FLUoxetine 20 MG CAPSULE PO SCH (08:19)
[2020-11-23] MEDS: FUROSEMIDE 40 MG/4 ML VIAL IV SCH (08:19)
[2020-11-23] MEDS: ASCORBIC ACID 500 MG TABLET PO SCH (08:19)
[2020-11-23] MEDS: TAMSULOSIN 0.4 MG CAPSULE PO SCH (08:20)
[2020-11-23] MEDS: VANCOMYCIN INJ 2,500 MG in SODIUM CHLORIDE 0.9% 500 ML IV SCH (10:00)
[2020-11-23] MEDS: ENOXAPARIN 40 MG/0.4 ML SYRINGE SUBCUT SCH (10:00)
[2020-11-23] MEDS: cefTRIAXone 1,000 MG in SODIUM CHLORIDE 0.9% 100 ML IV SCH (12:26)
[2020-11-24] MEDS: methylPREDNISolone SOD SUC 40 MG/1 ML VIAL IV SCH ×3 (00:14→16:20)
[2020-11-24] MEDS: ALBUTEROL/IPRATROPIUM 3 ML NEB RESP TX SCH ×4 (01:29→19:49)
[2020-11-24] MEDS: fentaNYL INJ 2,500 MCG in SODIUM CHLORIDE 0.9% 450 ML IV PRN ×5 (03:01→19:26)
[2020-11-24 04:39] LABS: ABG HCO3 29.8 MMOL/L (20-26); ABG Oxygen Saturation 91.8 % (95-100); ABG PO2 71.5 MM HG (80-95); ABG TCO2 28.8 MMOL/L (23-27); Allen Test Positive; Pt O2 Delivery Device Ventilator
[2020-11-24] MEDS: MIDAZOLAM 100 MG in SODIUM CHLORIDE 0.9% 80 ML IV PRN ×3 (05:21→18:14)
[2020-11-24 05:35] LABS: Basophils % 0.2 % (0.0-0.8); Hematocrit 35.8 VOL% (35.7-47.0); Hemoglobin 9.8 GM/DL (12.0-16.0); Immature Granulocytes Absolute 0.51 #; Lymphocytes # 0.7 10*3/uL (1.4-4.0); Lymphocytes % 7.1 % (21.3-54.2); Mean Corpuscular HGB Conc 27.4 GM/DL (32-36); Mean Corpuscular Volume 89.1 FL (87-102); Mean Platelet Volume 12.9 FL (9.6-12.0); Monocytes % 8.1 % (1.7-12.7); NRBC # 0.02 10*3/uL; Neutrophils % 79.6 % (38.7-73.9); Platelet Count 159 T/CUMM (130-400); Red Blood Count 4.02 MC/CUMM (3.8-5.5); Red Cell Distribution Width 23.9 % (9.3-17.3); White Blood Count 10.3 T/CUMM (4-12)
[2020-11-24 05:36] LABS: Albumin 2.4 G/DL (3.4-5.0); Bilirubin,Total 1.6 MG/DL (0.2-1.0); Osmolality,Calculated 313.4 MOS/KG (273-304); Potassium 4.6 MMOL/L (3.5-5.1); Total Protein 6.4 G/DL (6.4-8.2)
[2020-11-24 05:44] LABS: Lymphocytes 4 % (20-55); Platelet Estimate Adequate; Segmented Neutrophils 86 % (50-85); Total Cells Counted 100
[2020-11-24 05:45] LABS: Hypochromasia 1+; Microcytosis 1+
[2020-11-24] MEDS: PANTOPRAZOLE 40 MG VIAL IV SCH (08:34)
[2020-11-24] MEDS: TAMSULOSIN 0.4 MG CAPSULE PO SCH (08:34)
[2020-11-24] MEDS: FUROSEMIDE 40 MG/4 ML VIAL IV SCH (08:34)
[2020-11-24] MEDS: FLUoxetine 20 MG CAPSULE PO SCH (08:35)
[2020-11-24] MEDS: ASCORBIC ACID 500 MG TABLET PO SCH (08:35)
[2020-11-24] MEDS: VANCOMYCIN INJ 2,500 MG in SODIUM CHLORIDE 0.9% 500 ML IV SCH (10:48)
[2020-11-24] MEDS: ENOXAPARIN 40 MG/0.4 ML SYRINGE SUBCUT SCH (11:30)
[2020-11-24] MEDS: cefTRIAXone 1,000 MG in SODIUM CHLORIDE 0.9% 100 ML IV SCH (12:07)
[2020-11-25] MEDS: MIDAZOLAM 100 MG in SODIUM CHLORIDE 0.9% 80 ML IV PRN ×4 (00:01→18:00)
[2020-11-25] MEDS: methylPREDNISolone SOD SUC 40 MG/1 ML VIAL IV SCH ×3 (00:30→16:00)
[2020-11-25] MEDS: ALBUTEROL/IPRATROPIUM 3 ML NEB RESP TX SCH ×4 (00:45→20:10)
[2020-11-25 02:51] LABS: ABG Base Excess 5.8 MMOL/L (-2.5-2.5); ABG HCO3 29.7 MMOL/L (20-26); ABG Oxygen Saturation 95.1 % (95-100); ABG PCO2 51.2 MM HG (35-48); ABG PO2 80.9 MM HG (80-95)
[2020-11-25] MEDS: fentaNYL INJ 2,500 MCG in SODIUM CHLORIDE 0.9% 450 ML IV PRN ×4 (04:01→21:08)
[2020-11-25 06:21] LABS: Basophils % 0.2 % (0.0-0.8); Eosinophils % 0.1 % (0.00-10.9); Hematocrit 35.1 VOL% (35.7-47.0); Hemoglobin 9.4 GM/DL (12.0-16.0); Immature Granulocytes Absolute 0.82 #; Lymphocytes # 0.9 10*3/uL (1.4-4.0); Lymphocytes % 7.9 % (21.3-54.2); Mean Corpuscular HGB Conc 26.8 GM/DL (32-36); Mean Corpuscular Volume 91.2 FL (87-102); Monocytes % 7.4 % (1.7-12.7); NRBC # 0.03 10*3/uL; Neutrophils % 77.4 % (38.7-73.9); Platelet Count 149 T/CUMM (130-400); Red Blood Count 3.85 MC/CUMM (3.8-5.5); Red Cell Distribution Width 24.2 % (9.3-17.3); White Blood Count 11.7 T/CUMM (4-12)
[2020-11-25 06:22] LABS: Calcium 8.7 MG/DL (8.5-10.1); Osmolality,Calculated 317.3 MOS/KG (273-304); Potassium 4.8 MMOL/L (3.5-5.1)
[2020-11-25 06:23] LABS: Band Neutrophils 1 % (0-10); Hypochromasia 1+; Lymphocytes 8 % (20-55); Microcytosis 1+; Platelet Estimate Adequate; Segmented Neutrophils 85 % (50-85); Total Cells Counted 100
[2020-11-25] MEDS: FLUoxetine 20 MG CAPSULE PO SCH (08:30)
[2020-11-25] MEDS: ASCORBIC ACID 500 MG TABLET PO SCH (08:30)
[2020-11-25] MEDS: TAMSULOSIN 0.4 MG CAPSULE PO SCH (08:30)
[2020-11-25] MEDS: PANTOPRAZOLE 40 MG VIAL IV SCH (08:34)
[2020-11-25] MEDS: FUROSEMIDE 40 MG/4 ML VIAL IV SCH (08:36)
[2020-11-25] MEDS: ENOXAPARIN 40 MG/0.4 ML SYRINGE SUBCUT SCH (12:03)
[2020-11-25] MEDS ORDERED: LACTULOSE 20 GM/30 ML UDCUP PO PRN (13:03)
[2020-11-25] MEDS: cefTRIAXone 1,000 MG in SODIUM CHLORIDE 0.9% 100 ML IV SCH (14:20)
[2020-11-25] MEDS: IBUPROFEN 600 MG TABLET PO PRN (15:59)
[2020-11-25] MEDS ORDERED: VANCOMYCIN INJ 2,000 MG in SODIUM CHLORIDE 0.9% 500 ML IV SCH (16:00)
== END 2020-11-25 23:38 | DRG 207 ==
LOC: N.ED 09:21 → SUATTDRO 10:41 → N.EDINP 10:41 → N.ICU 11:33
PROVIDERS: ADMIT Internal Medicine; ATTEND Internal Medicine